=== PATIENT | female | born 1950 | race Caucasian/White ===

== ENCOUNTER → 2016-06-08 | Outpatient (CLI) | payer BC ==
[~2016-06-08] MED LIST: AMITRIPTYLINE; AMT10T; BPR100T; HCTZ; HCTZ12.5T; INDERAL; LEVO75TA6 PO; MELO15TA14 PO; OMEP20CA12 PO; PREMARIN PO; PREMPRO; PROP20TA23; SERT25TA PO; WELLBUTRIN
--- OUTSIDE RECORDS SUMMARY | 2016-06-08 09:33 | XMS REPORT | Continuity of Care Document ---
Author Author [facility] Organization [facility] Address Unknown Phone Unavailable Care Team Providers Care Tank Shop Supervisor Name Role Phone Candido Mckinney PCP Unavailable Source Comments Some departments are not documenting in the electronic medical record. If you do not see the information that you expected, contact Release of Information in the Health Information Management department at [phone] for further assistance in locating additional records.[facility] Active Allergies and Adverse Reactions No Known Allergies Current Medications Prescription Sig. Disp. Refills Start End Date Status Date LEVOTHYROXINE SODIUM Take by mouth. Active (LEVOTHYROXINE PO) estrogens, conjugated Take 0.3 mg by mouth Active (PREMARIN) 0.3 mg tablet daily. SERTRALINE HCL (ZOLOFT Take by mouth. Active PO) HYDROCHLOROTHIAZIDE PO Take by mouth. Active MULTIVITAMINS WITH Take by mouth. Active FLUORIDE (MULTI-VITAMIN PO) DOCOSAHEXANOIC ACID/EPA Take by mouth. 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 Last Assessment & Plan: looks good on indirect exam laser barricade Vitreous hemorrhage of right eye (HCC) 03/02/2015 Last Assessment & Plan: resolved Social History Tobacco Use Types Packs/Day Years Used Date Never Smoker Alcohol Use Drinks/Week oz/Week Comments No Last Filed Vital Signs Vital Sign Reading Time Taken Blood Pressure 121/60 03/02/2015 9:11 AM CORRECTIONS LIEUTENANT Pulse 66 03/02/2015 9:11 AM CORRECTIONS LIEUTENANT Temperature 36.6 C (97.9 F) 03/01/2015 8:35 PM CORRECTIONS LIEUTENANT Respiratory Rate - - Height 1.6 m (5' 3") 10/22/2015 3:25 PM CDT Weight 73.3 kg (161 lb 9.6 oz) 10/22/2015 3:25 PM CDT Body Mass Index 28.63 10/22/2015 3:25 PM CDT Oxygen Saturation 97% 03/01/2015 8:35 PM CORRECTIONS LIEUTENANT Plan of Care Health Maintenance Due Date Last Done Comments Physical (Comprehensive) 1957 Exam Pertussis Vaccine 1961 Tetanus Vaccine 06/27/1967 Breast Cancer Screening 1990 Colorectal Cancer 2000 Screening Shingles Vaccine 2010 Osteoporosis Screening 06/27/2015 Prevnar/Pneumovax (#1) 06/27/2015 Influenza Vaccine 12/23/2015 Results from Last 3 Months Not on file
--- NOTE | 2016-06-09 09:33 | Diagnostic Imaging Report ---
Bilateral screening mammogram. The current study was also evaluated with a Computer Aided Detection (CAD) system. Indication: Screening. No current complaints stated on the questionnaire. COMPARISON: 04/28/2015. FINDINGS: The breasts are composed of heterogeneously dense parenchyma which may decrease mammographic sensitivity. There are increased clusters of calcifications in the outer upper aspect of the left breast. There is asymmetry along the upper aspect of the right MLO view anteriorly seen as well. IMPRESSION: Focal compression magnification views for upper outer left breast calcifications and focal compression view for asymmetry in the upper anterior aspect of the right breast recommended. ACR BI-RADS Category 0: Incomplete. (Needs additional imaging evaluation). Result letter will be mailed to the patient. Note: At least 10% of breast cancer is not imaged by mammography. Dictated by: Dictated on workstation # [id number]
== END ==
LOC: RAD 09:30
PROVIDERS: ATTEND Obstetrics & Gynecology
DX: Z12.31 Encounter for screening mammogram for malignant neoplasm of breast (principal)
CPT/HCPCS: 77067

== ENCOUNTER → 2016-06-14 | Outpatient (CLI) | payer BC ==
--- OUTSIDE RECORDS SUMMARY | 2016-06-14 08:17 | XMS REPORT | Continuity of Care Document ---
Author Author [facility] Organization [facility] Address Unknown Phone Unavailable Care Team Providers Care Production Internship Name Role Phone Candido Mckinney PCP Unavailable Source Comments Some departments are not documenting in the electronic medical record. If you do not see the information that you expected, contact Release of Information in the Health Information Management department at [phone] for further assistance in locating additional records.[facility] Active Allergies and Adverse Reactions No [...] Taken Blood Pressure 121/60 03/02/2015 9:11 AM CLINICAL DIETITIAN Pulse 66 03/02/2015 9:11 AM CLINICAL DIETITIAN Temperature 36.6 C (97.9 F) 03/01/2015 8:35 PM CLINICAL DIETITIAN Respiratory Rate - - Height 1.6 m (5' 3") 10/22/2015 3:25 PM CDT Weight 73.3 kg (161 lb 9.6 oz) 10/22/2015 3:25 PM CDT Body Mass Index 28.63 10/22/2015 3:25 PM CDT Oxygen Saturation 97% 03/01/2015 8:35 PM CLINICAL DIETITIAN Plan of Care Health Maintenance Due Date Last Done Comments Physical (Comprehensive) 1957 Exam Pertussis Vaccine 1961 Tetanus Vaccine 06/27/1967 Breast Cancer Screening 1990 Colorectal Cancer 2000 Screening Shingles Vaccine 2010 Osteoporosis Screening 06/27/2015 Prevnar/Pneumovax (#1) 06/27/2015 Influenza Vaccine 12/23/2015 Results from Last 3 Months Not on file
--- NOTE | 2016-06-14 19:23 | Diagnostic Imaging Report ---
Digital mammogram bilateral diagnostic. INDICATION: Abnormal screening mammogram. The current study was also evaluated with a Computer Aided Detection (CAD) system. FINDINGS: The screening mammogram performed on 06/08/16 noted an increase in the calcifications in the upper-outer aspect of the left breast. Compression/magnification views of these calcifications show that they do not have a particularly threatening appearance. Even so, I would recommend that ultrasound be performed to determine if there is any underlying abnormality evident in this region. The recent screening mammogram also suggested an asymmetric density along the anterior aspect of the superior half of the right breast. Compression views of this area show no definite abnormality. I suspect that this finding is secondary to superimposition of the dense fibroglandular tissue in the right breast. Even so, I would recommend that ultrasound of this area be performed as well. IMPRESSION: Ultrasound of both breasts would be recommended for further study. ACR BI-RADS Category 0: Incomplete. (Needs additional imaging evaluation). Result letter will be mailed to the patient. Note: At least 10% of breast cancer is not imaged by mammography. Dictated by: Dictated on workstation # [id number]
--- NOTE | 2016-06-14 20:36 | Diagnostic Imaging Report ---
INDICATION: Abnormal mammogram. EXAMINATION: Bilateral breast ultrasound. FINDINGS: The screening mammogram performed on 06/08/16 noted an increase in calcifications in the upper-outer aspect of the left breast. The ultrasound examination of this area shows no discrete solid or cystic mass. I suspect that these calcifications are most likely benign. Even so, if a tissue diagnosis is desired, a stereotactic biopsy would be recommended. The screening mammogram also suggested a small area of increased density along the anterior superior aspect of the right breast. The diagnostic mammogram performed earlier today failed to show any sign of malignancy in this area. On this study, there is no discrete solid or cystic mass identified. I suspect that the asymmetry seen on the screening mammogram was secondary to superimposition of the dense fibroglandular tissue. Even so, it may prove worthwhile to have a short-term (6 month) followup ultrasound exam of the right breast for further study. IMPRESSION: 1. The calcifications in the upper-outer aspect of the left breast, seen on mammogram, could not be identified on this study. These are unlikely to be related to a malignant process but if a tissue diagnosis is desired, then a stereotactic biopsy would be recommended. 2. There is no evidence for malignancy involving the right breast. Recommendations as above. 3. These results were discussed with Dr. Andrew Molina. ACR BI-RADS Category 4A: Low suspicion of malignancy. Result letter will be mailed to the patient. Note: At least 10% of breast cancer is not imaged by mammography. Dictated by: Dictated on workstation # [id number]
== END ==
LOC: RAD 08:13
PROVIDERS: ATTEND Obstetrics & Gynecology
DX: R92.8 Other abnormal and inconclusive findings on diagnostic imaging of breast (principal)
CPT/HCPCS: 76642; 77066

== ENCOUNTER → 2016-07-19 | Outpatient (CLI) | payer BC | LOC: PREOP 05:38 | PROVIDERS: ATTEND Internal Medicine | DX: Z01.818 Encounter for other preprocedural examination (principal); Z12.11 Encounter for screening for malignant neoplasm of colon ==

== ENCOUNTER 2016-07-21 07:42 | Day surgery (SDC) | payer BC ==
[~2016-07-21] VITALS: Ht 157.5 cm; Wt 70.3 kg
[2016-07-21 07:55] VITALS: BP 130/72
[2016-07-21] MEDS ORDERED: LIDOCAINE JELLY 2% (XYLOCAINE) 5 ML TUBE MM PRN (08:00)
[2016-07-21] MEDS ORDERED: 1/2 NS IV SOLUTION 1,000 ML IV PRN (08:00)
[2016-07-21] MEDS ORDERED: FLUMAZENIL (ROMAZICON) 0.1 MG/ML 5 ML VIAL INJ PRN (08:00)
[2016-07-21] MEDS ORDERED: NALOXONE 0.4 MG/ML 1 ML (NARCAN) VIAL IVP PRN (08:00)
--- NOTE | 2016-07-21 08:08 | Pre-Op Note & Conscious Sedat ---
Pre-Operative Progress Note H&P Reviewed The H&P was reviewed, patient examined and no changes noted. Date H&P Reviewed: Jul 21, 2016 Time H&P Reviewed: 08:08 Conscious Sedation Pre-Proced ASA Class: 2 Airway Mallampati Classification: (umatilla tribe appropriate class) I. II. III, IV Lungs Heart ASA score ASA 1: a normal healthy patient ASA 2: a patient with a mild systemic disease (mid diabetes, controlled hypertension, obesity ASA 3: a patient with a severe systemic disease that limits activity (angina , COPD, prior Myocardial infarction) ASA 4: a patient with an incapacitating disease that is a constant threat to life (CHF, renal failure) ASA 5: a moribund patient not expected to survive 24 hrs. (ruptured aneurysm) ASA 6: a declared brain patient whose organs are being harvested. For emergent operations, add the letter E after the classification Grade 2 Sedation Plan: Analgesia, Amnesia, Plan communicated to team members, Discussed options with patient/fam, Discussed risks with patient/fam Note The patient is an appropriate candidate to undergo the planned procedure, sedation, and anesthesia. The patient immediately re-assessed prior to indication. SHARON WOOD MD Jul 21, 2016 8:08 am
--- NOTE | 2016-07-21 08:12 | HISTORY AND PHYSICAL ---
DICTATING PHYSICIAN: Dr. Mckinney DATE OF ADMISSION: 07/21/2016 Mrs. Conway is a 66-year-old white female set-up for screening colonoscopy. She is deemed to be of higher than average risk as her mother was diagnosed with colon cancer in her 50s. She is still living at the age of 84. She presented to the office for wellness examination on 07/06. She reports right groin pain after inactivity. It is worse when she gets up out of bed in the morning, gets a little better after she gets up and gets moving. There is a family history of osteoarthritis. 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 She reports otherwise that she has been feeling well. She has noted no blood in her stool. She denies abdominal pain and has reported no bowel habit change. She reports that her weight has been stable. PAST MEDICAL HISTORY: 1. 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 2. She is on thyroid replacement. 3. She has a history of Meniere's disease for which she takes Dyazide. 4. She is on hormone replacement following a hysterectomy for benign reasons in the past. PAST SURGICAL HISTORY: 1. Significant for appendectomy at age of 10. 2. Cholecystectomy in 2006. 3. Aforementioned hysterectomy. 4. She has had rotator cuff repair x3. SOCIAL HISTORY: She has no past smoking history with rare social alcohol intake. She is a teacher at [employer]. PHYSICAL EXAMINATION: Reveals a pleasant articulate white female in no acute distress. VITAL SIGNS: Blood pressure was 138/76. HEENT EXAMINATION: Reveals a Mallampati class II oropharyngeal configuration. NECK: Reveals no JVD, adenopathy or bruits. CHEST: Clear. CV: Reveals a regular rate and rhythm without murmur, S3 or S4. ABDOMEN: Soft, supple without masses, organomegaly or tenderness. EXTREMITIES: Reveal no cyanosis, clubbing, or edema. She does have some right groin pain on range of motion that is worse with internal rotation. ASSESSMENT: 1. The patient was set-up for screening colonoscopy. It has been 10 years since her last report a colonoscopy which time she does not believe any polyps were removed. She is deemed to be of higher than average risk as her mother was diagnosed with colon cancer in her 50s. She is set up for the 21 of July. Prep instructions with the Peralta-prep kit were given and questions were answered. A CBC, a chemistry panel, lipid panel and a TSH were obtained. She will return in one year for a wellness examination as long as her blood tests are unremarkable. 2. Probable osteoarthritis of the right hip. I discussed the importance of regular physical activity. She does not believe her pain is significant enough to warrant orthopedic referral at this time. david Tylenol was discussed as well. Job ID: [id number] Dictated Date: 07/06/2016 21:53:00 Pearl Maker Date: 07/07/2016 07:23:09/hayley
[2016-07-21] MEDS ORDERED: fentaNYL INJECTION 100 MCG/2 ML AMP ONE ×2 (09:25→09:55)
[2016-07-21] MEDS ORDERED: MIDAZOLAM 2 MG/2 ML (VERSED) VIAL ONE ×4 (09:25→10:01)
[2016-07-21] MEDS ORDERED: LIDOCAINE JELLY 2% (XYLOCAINE) 5 ML TUBE ONE (09:26)
[2016-07-21] MEDS: fentaNYL INJECTION 100 MCG/2 ML AMP IVP PRN ×4 (09:45→10:05)
[2016-07-21] MEDS: MIDAZOLAM 2 MG/2 ML (VERSED) VIAL IVP PRN ×4 (09:47→11:17)
[2016-07-21] MEDS ORDERED: proPOfol 200 MG/20 ML (DIPRIVAN) VIAL IV ONE (10:04)
[2016-07-21 10:30] VITALS: BP 128/69
--- NOTE | 2016-07-21 10:32 | Progress Note-Standard ---
Standard Progress Note Progress Notes/Assess & Plan Progress/Assessment & Plan Called to endo for rescue sedation. Patient already sedated but not tolerating procedure. Brief history obtained from RN. Sedation total 70mg propofol. Tolerated well. MONA RUIZ CRNA Jul 21, 2016 10:32
[2016-07-21 11:00] VITALS: BP 134/55
--- NOTE | 2016-07-24 08:40 | OPERATIVE REPORT ---
PROCEDURE PHYSICIAN: SHARON WOOD DATE OF PROCEDURE: 07/21/2016 PRIMARY CARE PHYSICIAN: Dr. Wood INDICATION FOR THE PROCEDURE: Screening colonoscopy. There is family history for colon cancer, index case being her mother, diagnosed in her 70s. PROCEDURE: Mera was placed in left lateral decubitus position. Prior to undergoing colonoscopy, digital rectal evaluation was performed. Anal sphincter tone was normal and the perianal reflex was intact. The colonoscope was inserted into the rectum. The patient did have moderate diverticular disease confined to the sigmoid colon. She had significant bowel sensitivity and despite Versed and fentanyl usage, we were not able to proceed without significant patient discomfort. The case was terminated under conscious sedation. Anesthesia was consulted and under Diprivan administration, we were able to finish the case without difficulty. There was a moderate amount of sigmoid diverticular disease without evidence for diverticulitis. The descending colon, splenic flexure, transverse colon, hepatic flexure, ascending colon and cecum were unremarkable. No evidence for neoplasia was identified. ASSESSMENT: Moderate diverticular disease confined to the sigmoid colon was present, without evidence for diverticulitis. This was an otherwise normal colonoscopy to cecum. Would advocate repeat screening colonoscopy in 5 years an earlier interval considering first degree relative diagnosed with colon cancer. Index case being her mother diagnosed in her 70s. Job ID: [id number] Dictated Date: 07/21/2016 16:40:13 Barrel Polisher Date: 07/24/2016 08:36:08 / sheeba
--- OUTSIDE RECORDS SUMMARY | 2016-08-13 07:48 | XMS REPORT | Continuity of Care Document ---
Author Author [facility] Organization [facility] Address Unknown Phone Unavailable Care Team Providers Care Yard Motor Operator Name Role Phone MckinneySiva PCP Unavailable Source Comments Some departments are not documenting in the electronic medical record. If you do not see the information that you expected, contact Release of Information in the Health Information Management department at [phone] for further assistance in locating additional records.[facility] Active Allergies and Adverse Reactions No [...] Taken Blood Pressure 121/60 03/02/2015 9:11 AM GAGE DESIGNER Pulse 66 03/02/2015 9:11 AM GAGE DESIGNER Temperature 36.6 C (97.9 F) 03/01/2015 8:35 PM GAGE DESIGNER Respiratory Rate - - Height 1.6 m (5' 3") 10/22/2015 3:25 PM CDT Weight 73.3 kg (161 lb 9.6 oz) 10/22/2015 3:25 PM CDT Body Mass Index 28.63 10/22/2015 3:25 PM CDT Oxygen Saturation 97% 03/01/2015 8:35 PM GAGE DESIGNER Plan of Care Health Maintenance Due Date Last Done Comments Hepatitis C Screening 1950 Physical (Comprehensive) 1957 Exam Pertussis Vaccine 1961 Tetanus Vaccine 06/27/1967 Breast Cancer Screening 1990 Colorectal Cancer 2000 Screening Shingles Vaccine 2010 Osteoporosis Screening 06/27/2015 Prevnar/Pneumovax (#1) 06/27/2015 Influenza Vaccine 12/22/2016 Results from Last 3 Months Not on file
--- OUTSIDE RECORDS SUMMARY | 2016-08-13 07:48 | XMS REPORT | Continuity of Care Document ---
Author Author [facility] Organization [facility] Address Unknown Phone Unavailable Allergies Active Description Code Type Severity Reaction Onset Reported/Identified Relationship to Patient Clinical Status Yes No Known Drug Allergies [id number] Drug Allergy Unknown N/ A 03/04/2008 Medications Problems Date Dx Coded Attending Type Code Diagnosis Diagnosed By 12/02/2010 Ot 718.47 12/02/2010 Ot 735.4 02/18/2014 RAHEEM GLASS MD Ot 276.8 HYPOPOTASSEMIA 02/18/2014 RAHEEM GLASS MD Ot 787.91 DIARRHEA 08/18/2014 SHARON WOOD MD Ot 530.10 ESOPHAGITIS NOS 08/18/2014 SHARON WOOD MD Ot 530.85 03/13/2015 HARISH FOUNTAIN DO Ot M54.12 RADICULOPATHY, CERVICAL REGION 03/13/2015 HARISH FOUNTAIN DO Ot R07.89 OTHER CHEST PAIN 04/28/2015 Ot 530.19 04/28/2015 Ot 530.85 04/28/2015 Ot 535.40 04/28/2015 Ot 553.3 04/28/2015 Ot V76.12 04/28/2015 Ot 718.47 04/28/2015 Ot V72.83 04/28/2015 Ot V74.8 04/28/2015 Ot V76.12 04/28/2015 Ot 427.9 04/28/2015 RAY HERNÁNDEZ, FELICITAS Perez Ot V76.12 04/28/2015 SORIN HERNÁNDEZ, JACK Seals Ot 786.50 04/28/2015 RAY HERNÁNDEZ, FELICITAS Perez Ot V76.12 04/28/2015 SHARON WOOD MD Ot V72.84 04/28/2015 SHARON WOOD MD Ot V72.84 05/12/2015 RAY HERNÁNDEZ, FELICITAS Perez Ot Z12.31 06/08/2016 Ot V76.12 OT SCREEN MAMMO-MALIGN NEOPLASM OF ELIZABETH 06/08/2016 Ot 427.9 CARDIAC DYSRHYTHMIA NOS 06/08/2016 FELICITAS BELL MD Ot V76.12 OTH SCREEN MAMMO-MALIGN NEOPLASM OF ELIZABETH 06/08/2016 SORIN HERNÁNDEZ, JACK Seals Ot 786.50 CHEST PAIN NOS 06/08/2016 RAY HERNÁNDEZ, FELICITAS Perez Ot V76.12 OTH SCREEN MAMMO-MALIGN NEOPLASM OF ELIZABETH 06/08/2016 NINA HERNÁNDEZ, SHARON Raygoza Ot V72.84 EXAM PRE-OPERATIVE NOS 06/08/2016 NINA HERNÁNDEZ, SHARON Raygoza Ot V72.84 EXAM PRE-OPERATIVE NOS 06/08/2016 FELICITAS BELL MD Ot Z12.31 ENCNTR SCREEN MAMMOGRAM FOR MALIGNANT NE 06/09/2016 FELICITAS BELL MD Ot Z12.31 ENCNTR SCREEN MAMMOGRAM FOR MALIGNANT NE 06/14/2016 Ot V76.12 OTH SCREEN MAMMO-MALIGN NEOPLASM OF ELIZABETH 06/14/2016 Ot 427.9 CARDIAC DYSRHYTHMIA NOS 06/14/2016 FELICITAS BELL MD Ot V76.12 OTH SCREEN MAMMO-MALIGN NEOPLASM OF ELIZABETH 06/14/2016 SORIN HERNÁNDEZ, JACK M Ot 786.50 CHEST PAIN NOS 06/14/2016 FELICITAS BELL MD Ot V76.12 OTH SCREEN MAMMO-MALIGN NEOPLASM OF ELIZABETH 06/14/2016 SHARON WOOD MD Ot V72.84 EXAM PRE-OPERATIVE NOS 06/14/2016 NINA HERNÁNDEZ, SHARON Raygoza Ot V72.84 EXAM PRE-OPERATIVE NOS 06/14/2016 FELICITAS BELL MD Ot Z12.31 ENCNTR SCREEN MAMMOGRAM FOR MALIGNANT NE 06/14/2016 FELICITAS BELL MD Ot Z12.31 ENCNTR SCREEN MAMMOGRAM FOR MALIGNANT NE 06/15/2016 FELICITAS BELL MD Ot R92.8 OTH ABN AND INCONCLUSIVE FINDINGS ON DX 06/22/2016 FELICITAS BELL MD Ot Z12.31 ENCNTR SCREEN MAMMOGRAM FOR MALIGNANT NE 06/22/2016 FELICITAS BELL MD Ot R92.8 OTH ABN AND INCONCLUSIVE FINDINGS ON DX 07/21/2016 SHARON WOOD MD Ot K57.30 DVRTCLOS OF LG INT W/O PERFORATION OR AB 07/21/2016 SHARON WOOD MD Ot Z12.11 ENCOUNTER FOR SCREENING FOR MALIGNANT NE 07/21/2016 SHARON WOOD MD Ot Z80.0 FAMILY HISTORY OF MALIGNANT NEOPLASM OF 07/24/2016 SHARON WOOD MD Ot K57.30 DVRTCLOS OF LG INT W/O PERFORATION OR AB 07/24/2016 SHARON WOOD MD Ot Z12.11 ENCOUNTER FOR SCREENING FOR MALIGNANT NE 07/24/2016 SHARON WOOD MD Ot Z80.0 FAMILY HISTORY OF MALIGNANT NEOPLASM OF 07/25/2016 SHARON WOOD MD Ot K57.30 DVRTCLOS OF LG INT W/O PERFORATION OR AB 07/25/2016 SHARON WOOD MD Ot Z12.11 ENCOUNTER FOR SCREENING FOR MALIGNANT NE 07/25/2016 SHARON WOOD MD Ot Z80.0 FAMILY HISTORY OF MALIGNANT NEOPLASM OF Procedures Results Encounters ACCT No. Visit Date/Time Discharge Status Pt. Type Provider Facility Loc./Unit Complaint [id number] 07/21/2016 07:42:00 2016 11:40:00 DIS Outpatient SHARON WOOD MD [facility] ENDO SCREENING [id number] 03/13/2015 12:17:00 2014 16:20:00 DIS Emergency HARISH FOUNTAIN DO [facility] ER CHEST PAIN [id number] 08/18/2014 07:09:00 2014 09:30:00 DIS Outpatient SHARON WOOD MD [facility] SDC GERGG'S [id number] 08/14/2014 07:30:00 2014 23:59:59 CLS Outpatient SHARON WOOD MD [facility] PREOP GREGG'S [id number] 08/06/2014 06:03:00 2014 23:59:59 CLS Outpatient SHARON WOOD MD [facility] PREOP GREGG'S [id number] 02/17/2014 22:38:00 2013 01:11:00 DIS Emergency RAHEEM GLASS MD [facility] ER FEVER [id number] 11/28/2013 09:52:00 2013 23:59:59 CLS Outpatient FELICITAS BELL MD [facility] RAD ROUTINE [id number] 12/18/2012 16:30:00 2012 23:59:59 CLS Outpatient JACK ROWELL MD [facility] RAD CP [id number] 09/02/2012 14:36:00 2012 23:59:59 CLS Outpatient FELICITAS BELL MD [facility] RAD SCREENING [id number] 07/19/2016 05:38:00 ACT Outpatient SHARON WOOD MD [facility] PREOP SCREENING [id number] 06/14/2016 08:13:00 ACT Outpatient FELICITAS BELL MD [facility] RAD ABNORMAL MAMMO [id number] 06/08/2016 09:30:00 ACT Outpatient FELICITAS BELL MD [facility] RAD ROUTINE SCREENING [id number] 04/28/2015 11:14:00 ACT Outpatient FELICITAS BELL MD [facility] RAD SCREENING [id number] 04/10/2012 13:13:00 Document Registration [id number] 09/01/2011 14:39:00 Document Registration [id number] 12/02/2010 05:34:00 Document Registration [id number] 11/30/2010 14:01:00 Document Registration [id number] 08/18/2010 14:12:00 Document Registration [id number] 12/29/2009 07:42:00 Document Registration
== END 2016-07-21 11:40 | disposition home or self-care (01) ==
LOC: DELPENDDIS → ENDO 07:42
PROVIDERS: ATTEND Internal Medicine
DX: Z12.11 Encounter for screening for malignant neoplasm of colon (principal); Z80.0 Family history of malignant neoplasm of digestive organs; K57.30 Diverticulosis of large intestine without perforation or abscess without bleeding

== ENCOUNTER → 2017-11-23 | Outpatient (CLI) | payer BC ==
--- NOTE | 2017-11-23 15:51 | Diagnostic Imaging Report ---
INDICATION: Routine screening. COMPARISON: 06/08/2016 and 04/28/2015. TECHNIQUE: 2D and 3D bilateral screening mammography was performed with CAD. FINDINGS: Both breasts remain heterogeneously dense, limiting the sensitivity of mammography. A marker clip in the upper-outer left breast is noted, consistent with prior biopsy. There are some residual calcifications adjacent to the clip. No dominant mass or malignant appearing microcalcifications are seen. The axillae are unremarkable. IMPRESSION: No mammographic features suspicious for malignancy are identified. ACR BI-RADS Category 2: Benign findings. Result letter will be mailed to the patient. Note: At least 10% of breast cancer is not imaged by mammography. Dictated by: Dictated on workstation # [id number]
== END ==
LOC: RAD 14:09
PROVIDERS: ATTEND Internal Medicine
DX: Z12.31 Encounter for screening mammogram for malignant neoplasm of breast (principal)
CPT/HCPCS: 77067

== ENCOUNTER 2018-04-05 13:00 | Outpatient (RCR) | payer BC | END 2018-04-05 13:19 | disposition home or self-care (01) | PROVIDERS: ATTEND Internal Medicine | DX: M75.81 Other shoulder lesions, right shoulder (principal); Z96.641 Presence of right artificial hip joint ==

== ENCOUNTER → 2019-06-11 | Outpatient (CLI) | payer BC ==
[~2019-06-11] MED LIST changes: +OMEP-280 PO; -OMEP20CA12 PO
--- NOTE | 2019-06-12 10:29 | Diagnostic Imaging Report ---
EXAM: Digital mammogram bilateral screening. COMPARISON with prior exam of 11/23/2017, 06/08/2016 and 04/28/2015. There are no current complaints. FINDINGS: The fibroglandular tissue in both breasts is heterogeneously dense. This does limit the sensitivity of this exam. As noted on the previous study, there is a stereotactic clip in the upper outer aspect of the left breast at posterior depth with a few associated microcalcifications. These findings are similar to the prior exam. The overall appearance of the breasts has not changed significantly otherwise. There is no primary or secondary sign of malignancy noted. IMPRESSION: 1. There are postbiopsy changes involving the left breast. There is no evidence for malignancy. 2. The patient should have her annual screening mammogram on schedule in May 2020. ACR category 1. ACR BI-RADS Category 1: Negative. Result letter will be mailed to the patient. Note: At least 10% of breast cancer is not imaged by mammography. Dictated by: Dictated on workstation # [id number]
== END ==
LOC: RAD 14:23
PROVIDERS: ATTEND Obstetrics & Gynecology
DX: Z12.31 Encounter for screening mammogram for malignant neoplasm of breast (principal)
CPT/HCPCS: 77067

== ENCOUNTER → 2020-06-14 | Outpatient (CLI) | payer BC ==
[~2020-06-14] MED LIST changes: -OMEP-280 PO; +OMEP20CA18 PO
--- NOTE | 2020-06-15 12:56 | Diagnostic Imaging Report ---
Indication: Routine screening. Comparison is made with prior mammogram 06/11/2019 and 11/23/2017. 2-D and 3-D bilateral screening mammography was performed with CAD. Both breasts are heterogeneously dense, limiting the sensitivity of mammography. A biopsy marker clip in the upper outer left breast is again noted. There are benign calcifications present. No dominant mass or malignant appearing microcalcifications are seen. Axillae are unremarkable. IMPRESSION: BI-RADS Category 2 No mammographic features suspicious for malignancy are identified. ACR BI-RADS Category 2: Benign findings. Result letter will be mailed to the patient. Note: At least 10% of breast cancer is not imaged by mammography. Dictated by: Dictated on workstation # [id number]
== END ==
LOC: RAD 14:59
PROVIDERS: ATTEND Internal Medicine
DX: Z12.31 Encounter for screening mammogram for malignant neoplasm of breast (principal)
CPT/HCPCS: 77063; 77067

== ENCOUNTER → 2022-01-05 | Outpatient (CLI) | payer BC ==
--- NOTE | 2022-01-05 14:34 | Diagnostic Imaging Report ---
Indication: Routine screening. Comparison is made with prior mammograms 06/14/2020 and 06/11/2019. 2-D and 3-D bilateral screening mammography was performed with CAD. Both breasts are heterogeneously dense, limiting the sensitivity of mammography. There are benign calcifications bilaterally. Biopsy marker clip outer left breast is noted. No mass or malignant-appearing microcalcifications are seen. Axillae are unremarkable. IMPRESSION: BI-RADS Category 2 No mammographic features suspicious for malignancy are identified. ACR BI-RADS Category 2: Benign findings. Result letter will be mailed to the patient. Note: At least 10% of breast cancer is not imaged by mammography. Dictated by: Dictated on workstation # [id number]
== END ==
LOC: RAD 10:59
PROVIDERS: ATTEND Obstetrics & Gynecology
DX: Z12.31 Encounter for screening mammogram for malignant neoplasm of breast (principal)
CPT/HCPCS: 77063; 77067